=== PATIENT | female | born 1945 | race Caucasian/White ===

== ENCOUNTER 2019-05-23 21:36 | Emergency (ER) | payer OTHER, MEDICARE ==
--- NOTE | 2019-05-23 21:44 | PDOC ---
History of Present Illness - General Stated Complaint: FALL Time Seen by Provider: 05/23/19 21:40 - History of Present Illness Initial Comments: 05/23/19 22:31 73f with with pmh of diabetes and severe right carotid stenosis presents with left sided weakness and facial droop. According to the son her last known normal was at 1530 (earlier statement said 2030). When he came home around 1900 as she was found laying on the floor complaining that her sciatica pain but unable to get back up. Son couldn't tell if her face was drooping at the time because her face was buried in a pillow with possibly slurred speech. It is only when he sat her up at 2030 that he noticed the facial dropping with no change in her definitely slurred speech. EMS was then called and patient fell again face first not able to support her weight and hit her head. Past History - Past Medical History Allergies/Adverse Reactions: Allergies Allergy/AdvReac Type Severity Reaction Status Date / Time No Known Allergies Allergy Verified 05/23/19 22:14 Home Medications: Ambulatory Orders Amlodipine Besylate 5 mg PO DAILY 11/30/17 Carvedilol 12.5 mg PO BID 11/30/17 Fenofibrate 48 mg PO DAILY 11/30/17 Humalog PRN 11/30/17 Lantus 30 units SCJ DAILY 11/30/17 Losartan Potassium 100 mg PO DAILY 11/30/17 Diabetes: Yes HTN: Yes - Suicide/Smoking/Psychosocial Hx Smoking History: Never smoked Review of Systems - Review of Systems Able to Perform ROS?: Yes Is the patient limited Greenlandic proficient: No Constitutional: No: Symptoms Reported HEENTM: No: Symptoms Reported Respiratory: No: Symptoms reported Cardiac (ROS): No: Symptoms Reported ABD/GI: No: Symptoms Reported : No: Symptoms Reported Musculoskeletal: No: Symptoms Reported Integumentary: No: Symptoms Reported Neurological: Yes: See HPI All Other Systems: Reviewed and Negative *Physical Exam - Physical Exam General Appearance: Yes: Nourished, Appropriately Dressed. No: Apparent Distress HEENT: positive: Other (small laceration, non-bleeding left eyebrow) Respiratory/Chest: positive: Lungs Clear, Normal Breath Sounds. negative: Chest Tender, Respiratory Distress Cardiovascular: positive: Regular Rhythm, Regular Rate, S1, S2 Gastrointestinal/Abdominal: positive: Normal Bowel Sounds, Flat, Soft. negative : Tender Musculoskeletal: positive: Normal Inspection. negative: CVA Tenderness Extremity: positive: Normal Capillary Refill, Normal Inspection, Normal Range of Motion Integumentary: positive: Normal Color, Dry, Warm Neurologic: positive: Alert, Normal Mood/Affect, Facial Droop. negative: Motor Strength 5/5, Numbness, Sensory Deficit NIH Stroke Scale - Last Known Well Date/Time & Onset Date Last Known Well: 05/23/19 Time Last Known Well: 15:30 - Initial Evaluation Level of consciousness: Alert Ask patient the month and their age: Answers both correctly Ask patient to open & close eyes; make fist and let go: Obeys both correctly Best gaze (horizontal eye movement): Normal Visual field testing: No visual field loss Facial paresis (Show teeth/raise eyebrows/close eyes tight): Partial paralysis ( total or near paralysis of lower face) Motor Function: Left Arm: Some effort against gravity Motor Function: Right Arm: Normal (extends arm 90 (or 45) degrees for 10 seconds without drift Motor Function: Left Leg: Normal (extends leg 30 degrees for 5 seconds without drift) Motor Function: Right Leg: Normal (extends leg 30 degrees for 5 seconds without drift) Limb Ataxia: Present in one limb Sensory(Use pinprick test arms,legs,trunk,face/side to side): Normal Best language (Describe picture, name items, read sentences): No Aphasia Dysarthria (read several words): Mild to moderate slurring of words Extinction and Inattention: No abnormality - Total Score NIH Stroke Scale Score: 6 tPA Exclusion Checklist 0-3hr - Time Elapsed Date last known well: 05/23/19 Time last known well: 20:30 Elaspsed time: Day(s) and 4 Hour(s) and 11 Minutes - Thrombolytic Therapy Candidate Is the patient eligible for Thrombolytic Therapy?: Yes - Exclusion Criteria 0-3hr SBP greater than 185 or DBP greater than 110mmHg despite tx: No Recent IC/spinal surgery,head trauma or stroke w/in last 3mo: No Hx of previous IC hemorrhage, IC neoplasm, AVM or aneurysm: No Active internal bleeding: No Blding diathesis(low plt ct, inc PTT,INR>1.7 or use of NOAC): No Symptoms suggest subarachnoid hemorrhage: No CT demonstrates multilobar infarct(>1/3 cerebral hemiphere): No Arterial puncture at noncompressible site in previous 7 days: No Blood glucose concentration less than 50mg/dL (2.7mmol/L): No - Relative Exclusion Criteria 0-3h Life expectancy <1yr/severe co-morbid illness/PNEUMATIC HOIST OPERATOR on admit: No : No Patient/family refused: No Rapid improvement: No Stroke severity too mild: No Recent acute LA (w/in previous 3 months): No Seizure at onset with postictal residual neuro impairments: No Major surgery or serious trauma w/in previous 14 days: No Recent GI or hemorrhage (w/in previous 21 days): No - Ineligibility reason(s) Reasons No tPA given: Outside of window - delayed arrival Critical Care Time/[place] Note - Medical Decision Making Note: 05/23/19 21:44 Pt is a 72 y/o F who presents with left facial drop anbd left sided paresis. Last known normal at this time was 1h ago. CODE [facility]DE[facility] announced and patietn took straight to CT 05/23/19 22:[address] evidence of acute intracranial pathology. Small chronic right cerebellar infarct. 05/23/19 22:52 As no contraindications for TPA, medication prepared but son now corrects story that patient was like this since 3:30pm. Dr. Levine consulted, on his way to ED. Waiting on renal function then CTA, with likely transfer for thrombectomy. CTA read: There is lack of enhancement involving the right internal carotid artery involving the cervical segment through the cavernous segment with extension to the supraclinoid segment minimally. There is enhancement within the distal right internal carotid artery at the level of the distal supraclinoid segment. These findings are concerning for occlusion/critical stenosis. Thrombus may be the etiology. Dissection is not excluded. Please note, the lack of enhancement extends inferior to the image level on the study and may involve more proximal aspects of the right internal carotid artery. Therefore occlusion/critical stenosis may exist proximal to the right internal carotid artery imaged on this study. Please note, these findings are age-indeterminate. Clinical correlation and followup evaluation is advised. Urgent endovascular neurosurgical or interventional neuroradiology consultation is advised. Catheter angiogram should be highly considered. Transferring patient to [facility]. 05/24/19 00:[address] Peralta, neurosurgery who will see the patient at [facility] and Dr. Najera who will receive the patient in the ER. *DC/Admit/Observation/Transfer Diagnosis at time of Disposition: Acute right arterial ischemic stroke, ICA (internal carotid artery) - Discharge Dispostion Disposition: TRANSFER ACUTE CARE/OTHER HOSP Condition at time of disposition: Guarded - Referrals - Patient Instructions Printed Discharge Instructions: DI for Stroke-Ischemic - Post Discharge Activity - Transfer to Acute Care Facility Receiving Facility: [facility] Accepting Physician:: Kathryn (Neurosurgery) Dania (ER)
[2019-05-23] MEDS ORDERED: SODIUM CHLORIDE 1,000 ML IV SCH (21:45)
[2019-05-23] MEDS ORDERED: ALTEPLASE 100MG 100 MG IVPB ONE (21:58)
[2019-05-23] MEDS ORDERED: ALTEPLASE 50 MG VIAL IVPB ONE (22:04)
--- NOTE | 2019-05-23 22:10 | PDOC ---
Documentation entered by Bethany Santos SCRIBE, acting as scribe for Yojana Hillman MD. Yojana Hillman MD: This documentation has been prepared by the Danielle kwong Brenda, SCRIBE, under my direction and personally reviewed by me in its entirety. I confirm that the documentation accurately reflects all work, treatment, procedures, and medical decision making performed by me. Attending Attestation - Resident Resident Name: Cuba Pearce - ED Attending Attestation I have performed the following: I have examined & evaluated the patient, The case was reviewed & discussed with the resident, I agree w/resident's findings & plan, Exceptions are as noted - HPI HPI: 05/23/19 22:19 The patient is a 73 year old female, gabonese-speaking, with a significant PMH of diabetes mellitus and severe right carotid stenosis, who presents to the emergency department [facility] with left-sided weakness, slurred speech and a facial droop. As per son, he last saw her at 5:30am today, and she was fine. As he translates for the patient, the patient states that she lied down on the floor around 2:30pm today, due to severe sciatic nerve pain. Around 3:00pm, she states feeling sleepy and tried to get up but was unable to due to weakness and numbing in her legs. She reports that around the same time her demented tried to help her up, unsucessfully. As per son, he arrived at home around 7: 00pm, at which time, the patient was still on o the floor, with her face partially on the pillow. As per son, she sounded tired and sounded the same as she does now. He notes that around 8:00pm, he tried to help her up to eat dinner, at which time he noticed the left-sided facial droop and the slurring of her speech became more apparent, and called EMS. The patient denies chest pain, shortness of breath, headache.. Denies fever, chills, nausea, vomiting, diarrhea and constipation. Denies dysuria, frequency, urgency and hematuria. Allergies: NKA Social history: No reported history of tobacco use or current use, no alcohol use or illicit drug use. - Physicial Exam PE: 05/23/19 23:[address] Pearce's exam. - Medical Decision Making 05/23/19 23:55 Dr Levine ,neuro, is consulting on this case and present in the emergency dept now NIHSS was initially 8 pt;s symptoms started about 3:30 with extremity weakness . She initially had laid down on her floor to help relieve her chronic sciatica back pain but when she tried to get up about an hour later she had weakness in her left leg. Her has dementia and could not help. She was on the floor until l her son came home for dinner at 7pm Pt arrived with facial droop ,mild slurred speech and left sided arm and leg weakness 05/24/19 00:25 CTA of the brain lack of enhancement involving the right internal carotid artery involving the cervical segments cavernous segment extension to the supraclinoid segment minimally There is enhancement within the distal right internal carotid artery His findings are concerning for occlusion /critical stenosis. there is a lack of enhancement extending inferiorly to the level of the study and may involve more proximal aspects of the right internal carotid imp: right ICA thrombus pt being transferred for possible thrombectomy to [facility] 05/24/19 00:39 05/24/19 00:44 05/24/19 01:20
[2019-05-23 22:14] VITALS: BMI 35.4
[2019-05-23 22:34] LABS: BASO % 0.1 % (0-2.0); EOS % 0.2 % (0-4.5); HEMATOCRIT 37.2 % (32.4-45.2); HEMOGLOBIN 12.5 GM/dL (10.7-15.3); LYMPH % 10.5 % (8-40); MCH 31.1 pg (25.7-33.7); MCHC 33.6 g/dl (32.0-36.0); MEAN CELL VOLUME 92.7 fl (80-96); MEAN PLT VOLUME 7.8 fl (7.5-11.1); MONO % 8.4 % (3.8-10.2); NEUT % 80.8 % (42.8-82.8); PLATELET COUNT 183 K/MM3 (134-434); RBC 4.02 M/mm3 (3.60-5.2); RDW 13.2 % (11.6-15.6); WHITE BLOOD COUNT 13.9 K/mm3 (4.0-10.0)
[2019-05-23 22:43] LABS: INR 1.13 (0.83-1.09); PROTHROMBIN TIME (PATIENT) 13.3 SEC (9.7-13.0)
[2019-05-23 22:46] LABS: ALBUMIN 3.8 g/dl (3.4-5.0); BILIRUBIN,TOTAL 0.6 mg/dL (0.2-1); BLOOD UREA NITROGEN 15.1 mg/dL (7-18); CALCIUM 9.1 mg/dL (8.5-10.1); POTASSIUM 4.1 mmol/L (3.5-5.1); TOT PROT 7.4 g/dl (6.4-8.2)
--- NOTE | 2019-05-24 00:21 | CON.NEURO ---
Consult Consult Specialty:: NEUROLOGY-IMELDA HASSAN Reason for Consultation:: CVA - History of Present Illness History of Present Illness: 73f with with pmh of diabetes and severe right carotid stenosis presents with left sided weakness and facial droop. According to the son her last known normal was at 1530 (earlier statement said 2029). When he came home around 1900 as she was found laying on the floor complaining that her sciatica pain but unable to get back up. Son couldn't tell if her face was drooping at the time because her face was buried in a pillow with possibly slurred speech. It is only when he sat her up at 2030 that he noticed the facial dropping with no change in her definitely slurred speech. EMS was then called and patient fell again face first not able to support her weight and hit her head. Pt. reports left sided weakness only. - Past Medical History Endocrine: Yes: Diabetes Mellitus - Past Surgical History Past Surgical History: Yes: None - Alcohol/Substance Use Hx Alcohol Use: No - Smoking History Smoking history: Never smoked Have you smoked in the past 12 months: No Home Medications - Allergies Allergies/Adverse Reactions: Allergies Allergy/AdvReac Type Severity Reaction Status Date / Time No Known Allergies Allergy Verified 05/23/19 22:14 - Home Medications Home Medications: Ambulatory Orders Amlodipine Besylate 5 mg PO DAILY 11/30/17 Carvedilol 12.5 mg PO BID 11/30/17 Fenofibrate 48 mg PO DAILY 11/30/17 Humalog PRN 11/30/17 Lantus 30 units SCJ DAILY 11/30/17 Losartan Potassium 100 mg PO DAILY 11/30/17 Physical Exam-Neuro Vital Signs: Vital Signs Temperature Pulse Rate 66 05/23/19 22:35 Respiratory Rate 18 05/23/19 22:35 Blood Pressure 140/66 05/23/19 22:35 O2 Sat by Pulse Oximetry (%) 100 05/23/19 22:35 Labs: CBC, BMP 05/23/19 21:56 05/23/19 21:56 INR, PTT INR 1.13 (0.83-1.09) H 05/23/19 21:56 - Neuro Exam Eyes: Yes: Left Hemianopsis (?? left hemianopsia) Mini Mental Exam: Impaired concentration. Cranial Nerves II-XII Intact: Yes (left central) DTR's: 0 Left Achilles, 0 Right Achilles, 1+ Right Bicep, 1+ Right Tricep, 1+ Left Brachioradialis, 1+ Right Brachioradialis, 2+ Left Bicep, 2+ Left Tricep Babinski: Present (left+) Motor Strength: 3/5: Left Arm, 5/5: Right Arm, Right Leg Assessment/Plan pt. with known right ICA stenosis, now with left hemiparesis, right ICA thrombus reported on CTA-she is a candidate for possible thrombectomy. Will request tx. to [facility] for evaluation of this procedure. d/w ER staff.
[2019-05-24] MEDS ORDERED: BACITRACIN 0.9 GM PACKET ONE (00:31)
[2019-05-24 00:37] VITALS: BP 136/66; PULSE 58
[2019-05-24 00:56] VITALS: TEMP 98.4
--- NOTE | 2019-05-24 09:28 | EKG ---
Test Reason : Blood Pressure : / mmHG Vent. Rate : 063 BPM Atrial Rate : 063 BPM P-R Int : 140 ms QRS Dur : 086 ms QT Int : 420 ms P-R-T Axes : 003 032 054 degrees QTc Int : 429 ms NORMAL SINUS RHYTHM NORMAL ECG Confirmed by Maciel Junior MD ([id number]) on 05/24/2019 9:27:54 AM Referred By: Confirmed By:Maciel Junior MD
== END 2019-05-24 03:08 | disposition short-term general hospital (02) ==
LOC: JER 21:36
DX: I63.231 Cerebral infarction due to unspecified occlusion or stenosis of right carotid arteries (principal); I10 Essential (primary) hypertension; E11.9 Type 2 diabetes mellitus without complications; Z79.4 Long term (current) use of insulin; G81.94 Hemiplegia, unspecified affecting left nondominant side; R47.81 Slurred speech; R29.810 Facial weakness; R29.706 NIHSS score 6
CPT/HCPCS: 36415; 70450-TC; 70496-TC; 80053; 82465; 82550; 82962; 83718; 83721; 84478; 84484; 85025; 85610; 86850; 86900; 86901; 93005; 93010; 99285-25; J7030

== ENCOUNTER 2023-08-28 07:05 | Emergency (ER) | payer OTHER, MEDICARE ==
[2023-08-28 07:54] VITALS: BP 168/85; TEMP 97.9; BMI 20.1
[2023-08-28 12:32] LABS: BASO % 0.1 % (0-2.0); EOS % 0.3 % (0-4.5); HEMATOCRIT 32.3 % (32.4-45.2); LYMPH % 27.3 % (8-40); MCH 35.6 pg (25.7-33.7); MCHC 34.1 g/dl (32.0-36.0); MEAN CELL VOLUME 104.3 fl (80-96); MEAN PLT VOLUME 8.8 fl (7.5-11.1); MONO % 9.8 % (3.8-10.2); NEUT % 62.5 % (42.8-82.8); PLATELET COUNT 115 10^3/uL (134-434); RDW 15.3 % (11.6-15.6); WHITE BLOOD COUNT 3.4 K/mm3 (4.0-10.0)
[2023-08-28 12:38] LABS: INR 1.18 (0.83-1.09); PROTHROMBIN TIME (PATIENT) 13.7 SEC (9.7-13.0)
[2023-08-28 12:48] LABS: POTASSIUM 4.5 mmol/L (3.5-5.1)
[2023-08-28 12:50] LABS: CALCIUM 8.3 mg/dL (8.5-10.1)
[2023-08-28 12:51] LABS: ALBUMIN 2.5 g/dl (3.4-5.0)
[2023-08-28 12:54] LABS: CREATININE 0.7 mg/dL (0.55-1.3)
[2023-08-28 12:55] LABS: PHOSPHOROUS 3.2 mg/dL (2.5-4.9)
[2023-08-28 12:55] LABS: TOT PROT 6.7 g/dl (6.4-8.2)
[2023-08-28 12:59] LABS: N-TERMINAL BNP 235.2 pg/ml (5-450)
== END 2023-08-28 16:33 | disposition home or self-care (01) ==
LOC: JER 07:05
DX: R22.43 Localized swelling, mass and lump, lower limb, bilateral (principal); R53.1 Weakness; K86.2 Cyst of pancreas
CPT/HCPCS: 36415; 71046-TC-FY; 72170-TC-FY; 73502-TC-LT-FY; 76705-TC; 80053; 83735; 83880; 84100; 85025; 85610; 86850; 86900; 86901; 93005; 93010; 93970-TC; 99285-25

== ENCOUNTER 2024-02-03 17:38 | Emergency (ER) | payer OTHER, MEDICARE ==
[2024-02-03 18:45] VITALS: BMI 20.3
[2024-02-03 19:07] LABS: HEMATOCRIT 35.4 % (32.4-45.2); HEMOGLOBIN 11.8 GM/dL (10.7-15.3); LYMPH % 6.2 % (8-40); MCH 30.2 pg (25.7-33.7); MCHC 33.3 g/dl (32.0-36.0); MEAN CELL VOLUME 90.8 fl (80-96); MEAN PLT VOLUME 8.3 fl (7.5-11.1); MONO % 7.7 % (3.8-10.2); NEUT % 86.1 % (42.8-82.8); PLATELET COUNT 151 10^3/uL (134-434); RDW 15.5 % (11.6-15.6); WHITE BLOOD COUNT 11.4 K/mm3 (4.0-10.0)
[2024-02-03 19:11] LABS: EPI CELLS 2 /uL (0-25.1); HYALINE CASTS 0 /uL (0-3.1); URINE APPEARANCE TURBID; URINE BACTERIA >9,000 /uL (0-1359); URINE BILIRUBIN 2+ (NEGATIVE); URINE COLOR DK YELLOW; URINE GLUCOSE (UA) NEGATIVE (NEGATIVE); URINE KETONE TRACE (NEGATIVE); URINE LEUK ESTERASE 3+ (NEGATIVE); URINE NITRITE NEGATIVE (NEGATIVE); URINE PROTEIN 1+ (NEGATIVE); URINE RBC 47 /uL (0-23.9); URINE WBC 1053 /uL (0-25.8)
[2024-02-03 19:13] LABS: INR 1.27 (0.83-1.09); PROTHROMBIN TIME (PATIENT) 14.2 SEC (9.7-13.0)
[2024-02-03 19:16] LABS: ACTIVATED PTT 32.8 SECONDS (25.2-36.5)
[2024-02-03 19:20] VITALS: PULSE 76; RESP 12
[2024-02-03] MEDS ORDERED: CEFTRIAXONE 1 GM/50 ML BAG ONE (19:22)
[2024-02-03] MEDS ORDERED: ACETAMINOPHEN INJECTION 100 ML IVPB ONE (19:22)
[2024-02-03] MEDS: SODIUM CHLORIDE 0.9% 500 ML INFUS.BAG IV ONE ×2 (19:34→20:49)
[2024-02-03] MEDS: CEFTRIAXONE 1 GM in DEXTROSE 5%-WATER - 100 ML IVPB ONE (19:34)
[2024-02-03] MEDS: ACETAMINOPHEN 1000 MG/100 ML BAG IVPB ONE (19:34)
[2024-02-03 20:14] LABS: POTASSIUM 4.2 mmol/L (3.5-5.1)
[2024-02-03 20:15] LABS: CALCIUM 8.9 mg/dL (8.5-10.1)
[2024-02-03 20:16] LABS: ALBUMIN 2.9 g/dl (3.4-5.0); BLOOD UREA NITROGEN 11.6 mg/dL (7-18)
[2024-02-03 20:21] LABS: TOT PROT 7.7 g/dl (6.4-8.2)
[2024-02-03 21:49] VITALS: BP 105/57
[2024-02-03 22:00] VITALS: TEMP 98.7
== END 2024-02-03 22:26 | disposition home or self-care (01) ==
LOC: JER 17:38
PROC: 3E03329 Introduction of Other Anti-infective into Peripheral Vein, Percutaneous Approach (ICD-10-PCS; principal; 2024-02-03)
PROC: 3E030NZ Introduction of Analgesics, Hypnotics, Sedatives into Peripheral Vein, Open Approach (ICD-10-PCS; 2024-02-03)
DX: N39.0 Urinary tract infection, site not specified (principal); R53.83 Other fatigue; R50.9 Fever, unspecified; I69.354 Hemiplegia and hemiparesis following cerebral infarction affecting left non-dominant side; Z20.822 Contact with and (suspected) exposure to COVID-19
CPT/HCPCS: 0241U-QW; 36415; 70450-TC; 71045-TC-FY; 80053; 81003; 82962; 84484; 85025; 85610; 85730; 87086; 87186; 93005; 93010; 99285-25; J0131

== ENCOUNTER 2025-02-07 20:24 | Inpatient (IN) | payer OTHER, MEDICARE ==
[2025-02-07 21:42] LABS: ABSOLUTE IMMATURE GRANULOCYTES 0.01 x10^3/uL (0.0-0.031); BASOPHILS # 0.02 x10^3/uL (0.01-0.08); EOSINOPHIL % 0.4 % (0.7-5.8); EOSINOPHILS # 0.03 x10^3/uL (0.04-0.36); HEMATOCRIT 20.5 % (34.1-44.9); HEMOGLOBIN 6.6 g/dL (11.2-15.7); MCHC 32.2 g/dl (32.2-35.5); MEAN CELL VOLUME 94.5 fl (79.4-94.8); MEAN PLT VOLUME 10.4 fl (9.4-12.3); MONOCYTE # 0.77 x10^3/uL (0.24-0.86); MONOCYTE % 11.2 % (4.7-12.5); PLATELET COUNT 147 x10^3/uL (182-369); RDW 15.7 % (12.4-16.6)
[2025-02-07 21:52] LABS: INR 1.2 (0.83-1.09); PROTHROMBIN TIME (PATIENT) 13.1 SEC (9.7-13.0)
[2025-02-07 21:55] LABS: ACTIVATED PTT 31.5 SECONDS (25.2-36.5)
[2025-02-07 22:14] LABS: POTASSIUM 4.6 mmol/L (3.5-5.1)
[2025-02-07 22:16] LABS: ALBUMIN 2.5 g/dl (3.4-5.0); CALCIUM 8.7 mg/dL (8.5-10.1)
[2025-02-07 22:19] LABS: BILIRUBIN,DIRECT 0.8 mg/dL (0.0-0.2); CREATININE 0.9 mg/dL (0.55-1.3)
[2025-02-07 22:21] LABS: BILIRUBIN,TOTAL 1.1 mg/dL (0.2-1); TOT PROT 6.1 g/dl (6.4-8.2)
[2025-02-07] MEDS ORDERED: PANTOPRAZOLE SODIUM 80 MG/200 ML BAG IVPB ONE (23:21)
[2025-02-07] MEDS ORDERED: ACETAMINOPHEN 325 MG TABLET (FP) PO PRN (23:52)
[2025-02-07] MEDS ORDERED: DOCUSATE SODIUM 100 MG CAPSULE (FP) PO PRN (23:52)
[2025-02-07] MEDS: PANTOPRAZOLE SODIUM 40 MG VIAL IVPUSH ONE (23:57)
[2025-02-08 03:26] VITALS: BMI 20.6
[2025-02-08] MEDS: INSULIN ASPART SLIDING SCALE (NOVOLOG) 1 VIAL SQ SCH (06:07)
[2025-02-08 08:10] LABS: ABSOLUTE IMMATURE GRANULOCYTES 0.02 x10^3/uL (0.0-0.031); BASOPHILS # 0.01 x10^3/uL (0.01-0.08); EOSINOPHIL % 0.5 % (0.7-5.8); EOSINOPHILS # 0.03 x10^3/uL (0.04-0.36); HEMATOCRIT 22.2 % (34.1-44.9); MCHC 31.5 g/dl (32.2-35.5); MEAN CELL VOLUME 91.4 fl (79.4-94.8); MEAN PLT VOLUME 10.9 fl (9.4-12.3); MONOCYTE # 0.71 x10^3/uL (0.24-0.86); MONOCYTE % 12.3 % (4.7-12.5); PLATELET COUNT 138 x10^3/uL (182-369); RDW 16.8 % (12.4-16.6)
[2025-02-08 08:46] LABS: ALBUMIN 2.4 g/dl (3.4-5.0); BLOOD UREA NITROGEN 28.8 mg/dL (7-18); CALCIUM 8.5 mg/dL (8.5-10.1)
[2025-02-08 08:49] LABS: CREATININE 0.8 mg/dL (0.55-1.3)
[2025-02-08 08:50] LABS: BILIRUBIN,TOTAL 1.7 mg/dL (0.2-1)
[2025-02-08 08:51] LABS: TOT PROT 5.7 g/dl (6.4-8.2)
[2025-02-08] MEDS ORDERED: PIPERACILLIN/TAZOB 3.375 GM 3.375 GM in DEXTROSE 5%-WATER - 50 ML IVPB SCH (10:30)
[2025-02-08] MEDS: DEXTROSE 5%-NORMAL SALINE 1,000 ML IV SCH (11:04)
[2025-02-08] MEDS: PANTOPRAZOLE SODIUM 40 MG VIAL IVPUSH SCH (11:04)
[2025-02-08] MEDS: PIPERACILLIN/TAZOB 3.375 GM 50 ML IVPB SCH (11:06)
[2025-02-08 14:49] LABS: INR 1.19 (0.83-1.09); PROTHROMBIN TIME (PATIENT) 13.1 SEC (9.7-13.0)
[2025-02-08 15:29] LABS: HEPATITIS B SURF AG NON-MATERN NON-REACTIVE (NONREACTIVE)
[2025-02-08 15:35] VITALS: TEMP 98.1
[2025-02-08 15:58] LABS: HCV DIAGNOSTIC IN-HOUSE W/RFLX NON-REACTIVE (NONREACTIVE)
[2025-02-08 16:50] LABS: POTASSIUM 4.1 mmol/L (3.5-5.1)
[2025-02-08] MEDS: DEXTROSE 5%-0.45% SALINE 1,000 ML IV SCH (17:03)
[2025-02-08 20:08] VITALS: BP 127/86; PULSE 62; RESP 18
== END 2025-02-08 20:46 | disposition short-term general hospital (02) | DRG 438 ==
LOC: JER 20:24 → JERBED 23:57 → J7W 02-08 01:05
PROVIDERS: ADMIT Family Medicine; ATTEND Family Medicine
DX: K86.89 Other specified diseases of pancreas (principal); K83.1 Obstruction of bile duct; E87.0 Hyperosmolality and hypernatremia; K92.2 Gastrointestinal hemorrhage, unspecified; D64.9 Anemia, unspecified; I10 Essential (primary) hypertension; R79.89 Other specified abnormal findings of blood chemistry; E11.65 Type 2 diabetes mellitus with hyperglycemia; E11.40 Type 2 diabetes mellitus with diabetic neuropathy, unspecified
CPT/HCPCS: 36415; 36430; 74174-TC; 76705-TC; 80053; 82140; 82248; 82272; 82962; 82977; 85025; 85610; 85730; 86704; 86708; 86803; 86850; 86900; 86901; 86922; 87340; 87517; 93005; 93010; 99285-25; P9038; P9058; Q9967